=== PATIENT | male | born 1935 | race Caucasian/White ===

== ENCOUNTER → 2017-03-25 | Outpatient (CLI) | payer MEDICARE, BC ==
[~2017-03-25] MED LIST: ACLI400A2 INH; ALBU8.5H8 INH; ALEN70TA5 PO; AMOX-291 PO; CELE200C PO; ESOM20CA PO; ESOM40CA PO; FLUT50DI INH; MAGN71.5 PO; METO50TA4 PO; MOME13HF INH; PROP325C4 PO
== END | disposition home or self-care (01) ==
LOC: CFH 12:49
PROVIDERS: ATTEND Nurse Practitioner
DX: I51.7 Cardiomegaly (principal); J44.9 Chronic obstructive pulmonary disease, unspecified; G47.30 Sleep apnea, unspecified
CPT/HCPCS: 71250

== ENCOUNTER 2017-09-12 08:55 | Observation (INO) | payer MEDICARE, BC ==
[~2017-09-12] VITALS: Ht 180.3 cm; Wt 75.7 kg
[2017-09-12] MEDS ORDERED: SODIUM CHLORIDE 0.9% 1,000 ML IV SCH (09:27)
[2017-09-12 09:32] VITALS: BP 154/75
[2017-09-12 09:44] LABS: BASOPHILS # (AUTO) 0.04 x10^3/uL (0-0.1); BASOPHILS % (AUTO) 1 % (0-1); EOSINOPHILS # (AUTO) 0.27 x10^3/uL (0-0.4); EOSINOPHILS % (AUTO) 4 % (1-7); LYMPHOCYTES # (AUTO) 1.02 x10^3/uL (1-3.4); LYMPHOCYTES % (AUTO) 15 % (22-44); MD NO; MEAN CORPUSCULAR HEMOGLOBIN 22.8 pg (27.5-34.5); MEAN CORPUSCULAR HGB CONC 31.1 g/dL (33.2-36.2); MEAN CORPUSCULAR VOLUME 73.3 fL (81-97); MEAN PLATELET VOLUME 9.4 fL (7.4-10.4); MONOCYTES # (AUTO) 0.64 x10^3/uL (0.2-0.8); MONOCYTES % (AUTO) 9 % (2-9); NEUTROPHILS # (AUTO) 4.89 x10^3/uL (1.8-6.8); NEUTROPHILS % (AUTO) 71 % (42-75); PLATELET COUNT 240 x10^3/uL (130-400); RED BLOOD COUNT 4.76 x10^6/uL (4.38-5.82); RED CELL DISTRIBUTION WIDTH 18.5 % (9.4-14.8)
[2017-09-12 09:52] LABS: INTERNATIONAL NORMALIZED RATIO 1.48 (0.93-1.1); PROTHROMBIN TIME 15.1 Seconds (9.6-11.5)
[2017-09-12] MEDS ORDERED: MULT-6 PO (09:52)
[2017-09-12] MEDS ORDERED: WARF-36 PO (09:52)
[2017-09-12] MEDS ORDERED: GLYC10.7 INH (09:52)
[2017-09-12] MEDS ORDERED: FLUT16SP INH (09:52)
[2017-09-12] MEDS ORDERED: WARF7.5T PO (09:52)
[2017-09-12] MEDS ORDERED: CALC-112 PO (09:52)
[2017-09-12] MEDS ORDERED: FLUT200B INH (09:55)
[2017-09-12 10:01] LABS: ANION GAP 10 mmol/L (5-15); CALCIUM 7.9 mg/dL (8.5-10.1); CHLORIDE 108 mmol/L (98-107)
[2017-09-12] MEDS ORDERED: MIDAZOLAM 1 MG/ML, 5ML ONE (11:23)
[2017-09-12] MEDS ORDERED: CEFAZOLIN PMX 1GM/50ML 50 ML ONE (11:23)
[2017-09-12] MEDS ORDERED: CEFAZOLIN 1,000 MG ONE (11:23)
[2017-09-12] MEDS ORDERED: FENTANYL PF 100 MCG/2ML ONE (11:23)
[2017-09-12] MEDS ORDERED: LIDOCAINE-MPF 2% ,5ML ONE (12:02)
[2017-09-12] MEDS ORDERED: BUPIVACAINE 0.25% ONE (12:03)
[2017-09-12] MEDS ORDERED: ACETAMINOPHEN 325 MG TABLET PO PRN (13:00)
[2017-09-12] MEDS ORDERED: ALBUTEROL SULFATE 2.5 MG/3 ML NPPB PRN (13:00)
[2017-09-12] MEDS ORDERED: ZOLPIDEM 5MG TABLET PO PRN (13:00)
[2017-09-12 14:31] VITALS: BP 129/75
[2017-09-12] MEDS: CEFAZOLIN PMX 1GM/50ML 50 ML IVPB SCH ×2 (14:49→22:46)
[2017-09-12] MEDS ORDERED: WARFARIN 7.5 MG TABLET PO-COUM SCH (18:00)
[2017-09-12] MEDS: PANTOPRAZOLE 20MG TABLET PO SCH (20:00)
[2017-09-12] MEDS: FLUTICASONE FUROATE 100MCG/INH INH SCH (20:00)
[2017-09-12] MEDS: FORMOTEROL FUM INH SCH (20:00)
[2017-09-12] MEDS: GLYCOPYRROLATE INH SCH (20:00)
[2017-09-12] MEDS: SODIUM CHLORIDE FLUSH 10ML SYR IVF SCH (20:00)
[2017-09-12] MEDS: [UNRECOGNIZED DRUG - OTHER] INH SCH (20:00)
[2017-09-12 20:02] VITALS: BP 125/71
[2017-09-13 02:20] VITALS: BP 133/79
[2017-09-13 07:35] VITALS: BP 127/77
[2017-09-13] MEDS ORDERED: ACET325T14 PO (08:07)
[2017-09-13] MEDS: SODIUM CHLORIDE FLUSH 10ML SYR IVF SCH (08:14)
[2017-09-13] MEDS: PANTOPRAZOLE 20MG TABLET PO SCH (08:19)
[2017-09-13] MEDS: METOPROLOL SUCCINATE 50 MG TAB.ER.24H PO SCH ×2 (08:20→08:39)
[2017-09-13] MEDS: [UNRECOGNIZED DRUG - OTHER] INH SCH (08:39)
[2017-09-13] MEDS: GLYCOPYRROLATE INH SCH (08:39)
[2017-09-13] MEDS: FORMOTEROL FUM INH SCH (08:39)
[2017-09-13] MEDS ORDERED: FLUTICASONE FUROATE 200MCG/INH INH SCH (09:00)
[2017-09-13] MEDS ORDERED: MAGNESIUM CHLORIDE 64 MG TABLET.DR PO SCH (09:00)
[2017-09-13] MEDS ORDERED: CALCIUM/VITAMIN D3 250-125 TABLET PO SCH (09:00)
[2017-09-13] MEDS ORDERED: MULTIVITAMIN 1 TABLET PO SCH (09:00)
[2017-09-13] MEDS: FLUTICASONE FUROATE 100MCG/INH INH SCH (09:00)
[2017-09-13] MEDS ORDERED: WARFARIN 5 MG TABLET PO-COUM SCH (18:00)
== END 2017-09-13 11:09 | disposition home or self-care (01) ==
LOC: CACL 08:55 → ORIP 12:51 → CACL 12:51 → 5SO 13:11
PROVIDERS: ADMIT Internal Medicine Cardiovascular Disease; ATTEND Internal Medicine Cardiovascular Disease
DX: I49.5 Sick sinus syndrome (principal); R00.1 Bradycardia, unspecified; I48.0 Paroxysmal atrial fibrillation; G47.36 Sleep related hypoventilation in conditions classified elsewhere; Z95.2 Presence of prosthetic heart valve
CPT/HCPCS: 33207; 36415; 71045; 80048; 85025; 85610; 93005; 96365; 96375; 99156; C1779; C1786; C1892; G0378; J0690; J2250; J3010; J3490

== ENCOUNTER → 2017-12-16 | Outpatient (CLI) | payer MEDICARE, BC ==
[~2017-12-16] MED LIST changes: +ACET325T14 PO; +CALC-112 PO; +FLUT16SP INH; +FLUT200B INH; +GLYC10.7 INH; +MULT-6 PO; +REGADENOSON 0.4 MG/5 ML SYRINGE ONE; +WARF-36 PO; +WARF7.5T PO
== END | disposition home or self-care (01) ==
LOC: CFH 12:32
PROVIDERS: ATTEND Physician Assistant Medical
DX: I25.5 Ischemic cardiomyopathy (principal); I21.19 ST elevation (STEMI) myocardial infarction involving other coronary artery of inferior wall; I25.9 Chronic ischemic heart disease, unspecified; I48.0 Paroxysmal atrial fibrillation; I25.10 Atherosclerotic heart disease of native coronary artery without angina pectoris; R06.09 Other forms of dyspnea
CPT/HCPCS: 78452; 93017; A9502; J2785

== ENCOUNTER 2018-04-07 08:39 | Day surgery (SDC) | payer MEDICARE, BC ==
[~2018-04-07] VITALS: Ht 180.3 cm; Wt 74.5 kg
[~2018-04-07 08:39] MED LIST changes: -REGADENOSON 0.4 MG/5 ML SYRINGE ONE
[2018-04-07 09:12] VITALS: BP 148/82
[2018-04-07] MEDS ORDERED: FLUT1BLS3 INH (09:29)
[2018-04-07] MEDS ORDERED: SODIUM CHLORIDE 0.9% 1,000 ML IV ONE (09:34)
[2018-04-07] MEDS ORDERED: DIPHENHYDRAMINE 50 MG/ML, 1ML ONE (09:40)
[2018-04-07 09:59] LABS: INTERNATIONAL NORMALIZED RATIO 1.24 (0.93-1.1); PROTHROMBIN TIME 12.7 Seconds (9.6-11.5)
[2018-04-07] MEDS ORDERED: DIPHENHYDRAMINE 50 MG/ML, 1ML IVPush ONE (10:00)
[2018-04-07] MEDS ORDERED: MIDAZOLAM 1 MG/ML, 2ML ONE (10:22)
[2018-04-07] MEDS ORDERED: FENTANYL PF 100 MCG/2ML ONE (10:22)
[2018-04-07] MEDS ORDERED: LIDOCAINE/PF 1%, 30ML ONE (10:23)
[2018-04-07] MEDS ORDERED: HEPARIN 1,000 UNITS/ML, 10ML ONE (10:23)
[2018-04-07] MEDS ORDERED: SODIUM CHLORIDE 0.9% 1,000 ML IV SCH (12:25)
[2018-04-07] MEDS ORDERED: FUROSEMIDE 40 MG/4 ML IV ONE (12:30)
[2018-04-07] MEDS ORDERED: FUROSEMIDE 40 MG/4 ML ONE (13:14)
[2018-04-07] MEDS ORDERED: FURO40TA6 PO (13:20)
[2018-04-07] MEDS ORDERED: SPIR25TA PO (13:20)
[2018-04-07] MEDS ORDERED: LOSA25TA6 PO (13:20)
== END 2018-04-07 16:22 | disposition home or self-care (01) ==
LOC: CACL 08:39
PROVIDERS: ATTEND Internal Medicine Cardiovascular Disease
DX: I27.20 Pulmonary hypertension, unspecified (principal); I42.9 Cardiomyopathy, unspecified; I48.91 Unspecified atrial fibrillation; I50.9 Heart failure, unspecified; J44.9 Chronic obstructive pulmonary disease, unspecified; Z95.0 Presence of cardiac pacemaker
CPT/HCPCS: 36415; 85610; 93456; 99156; 99157; C1769; C1894; J1200; J1940; J2250; J3010; J3490; J7030; Q9967; J1644